=== PATIENT | male | born 1955 | race Caucasian/White ===

== ENCOUNTER → 2018-02-18 07:47 | Outpatient (CLI) | payer SELFPAY ==
[2018-02-18 09:15] LABS: Cholesterol 170 mg/dL (50-200); HDL Cholesterol 36 mg/dL (40-60); LDL CHOLESTEROL 108 mg/dL (<100); Triglyceride 189 mg/dL (30-150)
== END ==
PROVIDERS: PCP Counselor Addiction (Substance Use Disorder); Visit Provider Internal Medicine Cardiovascular Disease
DX: E78.00 Pure hypercholesterolemia, unspecified (principal)
CPT/HCPCS: 36415; 80061; 83721

== ENCOUNTER 2019-05-24 12:00 | Outpatient (CLI) | payer SELFPAY ==
[2019-05-24 13:03] LABS: Calculated LDL 79 mg/dL; Cholesterol 146 mg/dL (50-200); HDL Cholesterol 37 mg/dL (40-60); Triglyceride 152 mg/dL (30-150)
== END 2019-05-24 12:20 ==
PROVIDERS: PCP Counselor Addiction (Substance Use Disorder); Visit Provider Internal Medicine Cardiovascular Disease
DX: E78.5 Hyperlipidemia, unspecified (principal)
CPT/HCPCS: 36415; 80061

== ENCOUNTER 2020-08-13 03:54 | Outpatient (CLI) | payer SELFPAY ==
[2020-08-13 10:34] LABS: Calculated LDL 71 mg/dL (<100); Cholesterol 139 mg/dL (<200); HDL Cholesterol 36 mg/dL (40-60); Triglyceride 163 mg/dL (<150)
== END 2020-08-13 03:55 | disposition home or self-care (01) ==
LOC: LBO 03:54
PROVIDERS: PCP Counselor Addiction (Substance Use Disorder); Visit Provider Internal Medicine Cardiovascular Disease
DX: I25.10 Atherosclerotic heart disease of native coronary artery without angina pectoris (principal)
CPT/HCPCS: 36415; 80061

== ENCOUNTER 2025-05-30 18:46 | Outpatient (REF) | payer MEDICARE, SELFPAY ==
[2025-05-30 19:04] LABS: Abs Immature Grans 0.06 10^3/uL (0.0-0.06); HCT 37.5 % (40.0-50.0); HGB 12.1 g/dL (13.5-17.5); Immature Grans % 0.8 %; MCH 27.7 pg (27.0-33.0); MCHC 32.3 % (32.0-36.0); MCV 86 fL (80-95); MPV 10.5 fL (8.0-11.0); Platelet Count 375 10^3/uL (130-400); RBC 4.37 10^6/uL (4.36-5.78); RDW 14.8 % (11.8-14.1); RDW-SD 45.9 fL; WBC 7.21 10^3/uL (4.4-10.8)
== END 2025-05-30 18:47 | disposition home or self-care (01) ==
LOC: LBN 18:46
PROVIDERS: PCP Counselor Addiction (Substance Use Disorder)
DX: R78.81 Bacteremia (principal); Z79.2 Long term (current) use of antibiotics
CPT/HCPCS: 80053; 85025

== ENCOUNTER 2025-06-01 15:42 | Outpatient (REF) | payer MEDICARE, SELFPAY ==
[2025-06-01 17:09] LABS: ALT 24 U/L (10-49); AST 32 U/L (<34); Albumin 4.0 g/dL (3.4-5.0); Alkaline Phosphatase 88 U/L (46-116); Anion Gap 6.3 mmol/L (3-11); BUN 14 mg/dL (9-23); Bilirubin, Total 0.40 mg/dL (0.2-1.2); CO2 30.7 mmol/L (20.0-31.0); Calcium 9.6 mg/dL (8.3-10.6); Chloride 103 mmol/L (98-107); Glucose 249 mg/dL (74-106); Potassium 4.2 mmol/L (3.5-5.1); Sodium 140 mmol/L (136-145); Total Protein 6.3 g/dL (5.7-8.2)
== END 2025-06-01 15:43 | disposition home or self-care (01) ==
LOC: LBN 15:42
PROVIDERS: PCP Counselor Addiction (Substance Use Disorder)
DX: R78.81 Bacteremia (principal); Z79.2 Long term (current) use of antibiotics
CPT/HCPCS: 80053

== ENCOUNTER 2025-06-04 19:04 | Outpatient (REF) | payer MEDICARE, SELFPAY ==
[2025-06-04 19:06] LABS: Abs Immature Grans 0.06 10^3/uL (0.0-0.06); HCT 45.4 % (40.0-50.0); HGB 14.5 g/dL (13.5-17.5); Immature Grans % 0.8 %; MCH 27.2 pg (27.0-33.0); MCHC 31.9 % (32.0-36.0); MCV 85 fL (80-95); MPV 10.6 fL (8.0-11.0); Platelet Count 330 10^3/uL (130-400); RBC 5.34 10^6/uL (4.36-5.78); RDW 14.7 % (11.8-14.1); RDW-SD 45.1 fL; WBC 7.27 10^3/uL (4.4-10.8)
[2025-06-04 19:30] LABS: ALT 24 U/L (10-49); AST 28 U/L (<34); Albumin 4.4 g/dL (3.2-5.0); Alkaline Phosphatase 102 U/L (46-116); Anion Gap 7.8 mmol/L (3-11); BUN 15 mg/dL (9-23); Bilirubin, Total 0.40 mg/dL (0.2-1.2); CO2 30.2 mmol/L (20.0-31.0); Calcium 9.8 mg/dL (8.3-10.6); Chloride 103 mmol/L (98-107); Glucose 223 mg/dL (74-106); Potassium 4.4 mmol/L (3.5-5.1); Sodium 141 mmol/L (136-145); Total Protein 6.7 g/dL (5.7-8.2)
== END 2025-06-04 19:05 | disposition home or self-care (01) ==
LOC: NCHCN 19:04
PROVIDERS: PCP Counselor Addiction (Substance Use Disorder)
DX: R78.81 Bacteremia (principal); B95.61 Methicillin susceptible Staphylococcus aureus infection as the cause of diseases classified elsewhere; Z79.2 Long term (current) use of antibiotics
CPT/HCPCS: 80053; 85025

== ENCOUNTER 2025-06-10 20:58 | Outpatient (REF) | payer MEDICARE, SELFPAY ==
[2025-06-10 17:35] LABS: Abs Immature Grans 0.05 10^3/uL (0.0-0.06); HCT 38.5 % (40.0-50.0); HGB 12.3 g/dL (13.5-17.5); Immature Grans % 0.8 %; MCH 27.6 pg (27.0-33.0); MCHC 31.9 % (32.0-36.0); MCV 86 fL (80-95); MPV 10.9 fL (8.0-11.0); Platelet Count 313 10^3/uL (130-400); RBC 4.46 10^6/uL (4.36-5.78); RDW 14.7 % (11.8-14.1); RDW-SD 46.4 fL; WBC 6.30 10^3/uL (4.4-10.8)
[2025-06-10 17:46] LABS: ALT 13 U/L (10-49); AST 18 U/L (<34); Albumin 4.1 g/dL (3.2-5.0); Alkaline Phosphatase 109 U/L (46-116); Anion Gap 8.3 mmol/L (3-11); BUN 15 mg/dL (9-23); Bilirubin, Total 0.50 mg/dL (0.2-1.2); CO2 29.7 mmol/L (20.0-31.0); Calcium 9.4 mg/dL (8.3-10.6); Chloride 100 mmol/L (98-107); Glucose 133 mg/dL (74-106); Potassium 4.3 mmol/L (3.5-5.1); Sodium 138 mmol/L (136-145); Total Protein 6.5 g/dL (5.7-8.2)
== END 2025-06-10 20:59 | disposition home or self-care (01) ==
LOC: LBN 20:58
PROVIDERS: PCP Counselor Addiction (Substance Use Disorder); Visit Provider Internal Medicine Infectious Disease
DX: B95.61 Methicillin susceptible Staphylococcus aureus infection as the cause of diseases classified elsewhere (principal); R78.81 Bacteremia
CPT/HCPCS: 80053; 85025

== ENCOUNTER 2025-06-17 16:19 | Outpatient (REF) | payer MEDICARE, SELFPAY ==
[2025-06-17 18:43] LABS: Abs Immature Grans 0.07 10^3/uL (0.0-0.06); HCT 39.9 % (40.0-50.0); HGB 12.6 g/dL (13.5-17.5); Immature Grans % 1.0 %; MCH 26.9 pg (27.0-33.0); MCHC 31.6 % (32.0-36.0); MCV 85 fL (80-95); MPV 11.6 fL (8.0-11.0); Platelet Count 279 10^3/uL (130-400); RBC 4.69 10^6/uL (4.36-5.78); RDW 14.5 % (11.8-14.1); RDW-SD 44.9 fL; WBC 7.07 10^3/uL (4.4-10.8)
[2025-06-17 18:52] LABS: ALT 10 U/L (10-49); AST 17 U/L (<34); Albumin 4.4 g/dL (3.2-5.0); Alkaline Phosphatase 112 U/L (46-116); Anion Gap 9.4 mmol/L (3-11); BUN 18 mg/dL (9-23); Bilirubin, Total 0.60 mg/dL (0.2-1.2); CO2 28.6 mmol/L (20.0-31.0); Calcium 9.4 mg/dL (8.3-10.6); Chloride 102 mmol/L (98-107); Glucose 130 mg/dL (74-106); Potassium 4.8 mmol/L (3.5-5.1); Sodium 140 mmol/L (136-145); Total Protein 6.6 g/dL (5.7-8.2)
== END 2025-06-17 16:20 | disposition home or self-care (01) ==
LOC: LBN 16:19
PROVIDERS: PCP Counselor Addiction (Substance Use Disorder); Visit Provider Internal Medicine Infectious Disease
DX: R78.81 Bacteremia (principal); B95.61 Methicillin susceptible Staphylococcus aureus infection as the cause of diseases classified elsewhere
CPT/HCPCS: 80053; 85025

== ENCOUNTER 2025-06-24 18:06 | Outpatient (REF) | payer MEDICARE, SELFPAY ==
[2025-06-24 17:32] LABS: Abs Immature Grans 0.06 10^3/uL (0.0-0.06); HCT 39.5 % (40.0-50.0); HGB 12.4 g/dL (13.5-17.5); Immature Grans % 1.0 %; MCH 26.7 pg (27.0-33.0); MCHC 31.4 % (32.0-36.0); MCV 85 fL (80-95); MPV 11.4 fL (8.0-11.0); Platelet Count 223 10^3/uL (130-400); RBC 4.64 10^6/uL (4.36-5.78); RDW 14.6 % (11.8-14.1); RDW-SD 44.8 fL; WBC 6.12 10^3/uL (4.4-10.8)
[2025-06-24 17:45] LABS: ALT 9 U/L (10-49); AST 16 U/L (<34); Albumin 4.4 g/dL (3.2-5.0); Alkaline Phosphatase 103 U/L (46-116); Anion Gap 9.2 mmol/L (3-11); BUN 17 mg/dL (9-23); Bilirubin, Total 0.3 mg/dL (0.2-1.2); CO2 28.8 mmol/L (20.0-31.0); Calcium 9.2 mg/dL (8.3-10.6); Chloride 102 mmol/L (98-107); Glucose 187 mg/dL (74-106); Potassium 4.5 mmol/L (3.5-5.1); Sodium 140 mmol/L (136-145); Total Protein 6.5 g/dL (5.7-8.2)
== END 2025-06-24 18:07 | disposition home or self-care (01) ==
LOC: NCHCN 18:06
PROVIDERS: PCP Counselor Addiction (Substance Use Disorder); Visit Provider Internal Medicine Infectious Disease
DX: B95.61 Methicillin susceptible Staphylococcus aureus infection as the cause of diseases classified elsewhere (principal)
CPT/HCPCS: 80053; 85025